=== PATIENT | female | born 1970 | race African-American/Black ===

== ENCOUNTER 2016-04-01 11:59 | Outpatient (CLI) | payer MEDICARE, OTHER | END 2016-04-01 12:00 | disposition home or self-care (01) | DX: M32.10 Systemic lupus erythematosus, organ or system involvement unspecified (principal) ==

== ENCOUNTER 2016-04-25 08:25 | Outpatient (CLI) | payer MEDICARE, OTHER | END 2016-04-25 08:26 | disposition home or self-care (01) | DX: N18.1 Chronic kidney disease, stage 1 (principal) ==

== ENCOUNTER 2016-12-02 12:32 | Outpatient (CLI) | payer MEDICARE, OTHER ==
--- NOTE | 2016-12-02 13:16 | XRAY Report ---
TWO-VIEW CHEST: 12/02/2016 CLINICAL INDICATION: Port removal, unable to remove catheter. FINDINGS: Frontal and lateral views of the chest demonstrate a normal cardiac silhouette. The lungs are clear. Port-A-Cath catheter is noted in the left subclavian vein and superior vena cava, in sta ble position from previous film of 04/01/2015. The external portion of the port has been removed. IMPRESSION: STABLE POSITION OF LEFT SUBCLAVIAN PORT CATHETER, TERMINATING IN THE SUPERIOR VENA CAVA. REMOVAL OF THE EXTERNAL PORTION OF THE PORT. CRITICAL RESULT: RESULTS CALLED TO DR. CHAPIN ON 12/02/2016 AT 1:00 P.M. JOB #: [id number] EXT JOB #:[id number]
== END 2016-12-02 12:33 | disposition home or self-care (01) ==
LOC: DI 12:32
PROVIDERS: ATTEND Surgery
DX: T82.898A Other specified complication of vascular prosthetic devices, implants and grafts, initial encounter (principal)
CPT/HCPCS: 71020

== ENCOUNTER 2017-05-28 08:00 | Outpatient (CLI) | payer MEDICARE, OTHER ==
[2017-05-29 13:48] LABS: COLLECTION TIME,URINE 1440 min; TOTAL VOLUME,URINE 1275 mL
[2017-05-29 13:50] LABS: CREATININE,URINE 166.1 mg/dL
== END 2017-05-28 23:59 | disposition home or self-care (01) ==
LOC: LAB.R 08:00
PROVIDERS: ATTEND Internal Medicine Rheumatology
DX: M32.10 Systemic lupus erythematosus, organ or system involvement unspecified (principal)
CPT/HCPCS: 81001; 82575; 84156; 87086

== ENCOUNTER 2017-05-29 08:00 | Outpatient (CLI) | payer MEDICARE, OTHER ==
[2017-05-29 12:38] LABS: BASOPHILS % (AUTO) 0.3 %; EOSINOPHILS % (AUTO) 0.5 %; LYMPHOCYTES # (AUTO) 2.2 10^3/uL (1.5-3.5); LYMPHOCYTES % (AUTO) 25.5 %; MEAN CORPUSCULAR HEMOGLOBIN 28.7 pg (27.0-31.0); MEAN CORPUSCULAR HGB CONC 32.6 g/dL (32.0-36.0); MEAN CORPUSCULAR VOLUME 88.1 fL (81.0-99.0); MONOCYTES # (AUTO) 0.5 10^3/uL (0.0-1.0); MONOCYTES % (AUTO) 5.9 %; NEUTROPHILS # (AUTO) 5.8 10^3/uL (1.5-6.6); NEUTROPHILS % (AUTO) 67.8 %; PLT - PLATELET COUNT 201 10^3/uL (130-450); RED BLOOD COUNT 4.89 10^6/uL (4.20-5.40); WHITE BLOOD COUNT 8.5 x10^3/uL (4.8-10.8)
[2017-05-29 12:55] LABS: RBC MORPHOLOGY (MULTIPLE) 2+ ANISOCYTOSIS (NORMAL)
[2017-05-29 13:11] LABS: ALBUMIN 4.2 g/dL (3.2-5.5); ALBUMIN/GLOBULIN RATIO 1.8 (1.0-2.2); BILIRUBIN,TOTAL 0.5 mg/dL (0.2-1.0); CALCIUM 8.7 mg/dL (8.5-10.3); CREATININE 0.9 mg/dL (0.4-1.0); TOTAL PROTEIN 6.6 g/dL (6.7-8.2)
[2017-05-29 18:51] LABS: BILIRUBIN,URINE NEGATIVE (NEGATIVE); GLUCOSE, URINE (UA) NEGATIVE (NEGATIVE); KETONES,URINE (UA) NEGATIVE (NEGATIVE); LEUKOCYTE ESTERASE, URINE NEGATIVE (NEGATIVE); NITRITE,URINE NEGATIVE (NEGATIVE); OCCULT BLOOD,URINE NEGATIVE (NEGATIVE); PROTEIN,URINE 100 mg/dL (NEGATIVE); UROBILINOGEN,URINE 0.2 (NORMAL) E.U./dL (NORMAL)
[2017-05-29 19:04] LABS: BACTERIA,URINE None Seen /HPF (None Seen); CLARITY,URINE CLEAR (CLEAR); RBC,URINE 0-5 /HPF (0-5); SQUAMOUS EPITHELIAL CELL,UR MANY Squamous (<= Few)
[2017-05-31 11:32] LABS: DNA (DS) ANTIBODY 6 IU/mL
[2017-05-31 16:47] LABS: COMPLEMENT COMPONENT C3C 116 mg/dL (83-193); COMPLEMENT COMPONENT C4C 28 mg/dL (15-57)
== END 2017-05-29 23:59 | disposition home or self-care (01) ==
LOC: LAB.N 08:00
PROVIDERS: ATTEND Internal Medicine Rheumatology
DX: M32.10 Systemic lupus erythematosus, organ or system involvement unspecified (principal)
CPT/HCPCS: 36415; 80053; 81001; 85025; 85651; 86160; 86225; 87086

== ENCOUNTER 2017-10-13 08:09 | Outpatient (CLI) | payer MEDICARE, OTHER ==
--- NOTE | 2017-10-13 16:24 | DEXA Report ---
Procedure Date: 10/13/2017 Accession Number: [id number] / [id number] Procedure: DEX - Dexa Forearm CPT Code: FULL RESULT: EXAM: Dexa Spine and/or Hip, Dexa Forearm DATE: 10/13/2017 8:53 AM CLINICAL HISTORY: OSTEOPOROSIS TECHNIQUE: Dual energy x-ray absorptiometry (DXA) was performed on a [employer] System. Regions measured are the AP Spine, femoral neck, and if needed forearm. COMPARISON: None. In accordance with the International Society for Clinical Densitometry (ISCD) guidelines, data from previous exams may be reanalyzed using current recommendations and techniques. This is done to allow a more accurate basis for comparison with the current study. FINDINGS: The data for the lumbar spine is as follows: BMD (g/cm/cm) T-SCORE Z-SCORE REGION L1 0.972 -1.3 -2.1 L2 1.015 -1.5 -2.4 L3 1.091 -0.9 -1.7 L4 1.066 -1.1 -1.9 TOTAL 1.040 -1.2 -2.0 NOTE: All evaluable vertebrae are used for classification The data for the left forearm is as follows: BMD (g/cm/cm) T-SCORE Z-SCORE REGION 1/3 0.867 -0.1 -0.8 NOTE: The 33% radius of the nondominant forearm is used for classification. IMPRESSION: THE WHO CLASSIFICATION BASED ON THE INTERNATIONAL REFERENCE STANDARD IS OSTEOPENIA. THE FRACTURE RISK IS INCREASED. RECOMMENDATION: Patients with diagnosis of osteoporosis or osteopenia should have regular bone mineral density assessment. For those eligible for Medicare, routine testing is allowed once every 2 years. Testing frequency can be increased for patients who have rapidly progressing disease or for those who are receiving medical therapy to restore bone mass. COMMENT: World Health Organization (WHO) definitions for osteoporosis and osteopenia: NORMAL BMD: T-score at -1.0 or higher, fracture risk is low OSTEOPENIA BMD: T-score between -1.0 and -2.5, fracture risk is increased. OSTEOPOROSIS BMD: T-score at -2.5 or lower, fracture risk is high. National Osteoporosis Foundation recommends: 1. Obtain adequate dietary calcium (at least 1200 mg per day) and vitamin D (400-800 international units per day). 2. Participate, as appropriate, in regular weightbearing and muscle-strengthening exercise. 3. Avoid tobacco use and reduce alcohol and caffeine intake. 4. For more detailed information see the website at [email or web address].org.
--- NOTE | 2017-10-13 16:24 | DEXA Report ---
Procedure Date: 10/13/2017 Accession Number: [id number] / [id number] Procedure: DEX - Dexa Spine and/or Hip CPT Code: FULL RESULT: EXAM: Dexa Spine and/or Hip, Dexa Forearm DATE: 10/13/2017 8:53 AM CLINICAL HISTORY: OSTEOPOROSIS TECHNIQUE: Dual energy x-ray absorptiometry (DXA) was performed on a [employer] System. Regions measured are the AP Spine, femoral neck, and if needed forearm. COMPARISON: None. In accordance with the International Society for Clinical Densitometry (ISCD) guidelines, data from previous exams may be reanalyzed using current recommendations and techniques. This is done to allow a more accurate basis for comparison with the current study. FINDINGS: The data for the lumbar spine is as follows: BMD (g/cm/cm) T-SCORE Z-SCORE REGION L1 0.972 -1.3 -2.1 L2 1.015 -1.5 -2.4 L3 1.091 -0.9 -1.7 L4 1.066 -1.1 -1.9 TOTAL 1.040 -1.2 -2.0 NOTE: All evaluable vertebrae are used for classification The data for the left forearm is as follows: BMD (g/cm/cm) T-SCORE Z-SCORE REGION 1/3 0.867 -0.1 -0.8 NOTE: The 33% radius of the nondominant forearm is used for classification. IMPRESSION: THE WHO CLASSIFICATION BASED ON THE INTERNATIONAL REFERENCE STANDARD IS OSTEOPENIA. THE FRACTURE RISK IS INCREASED. RECOMMENDATION: Patients with diagnosis of osteoporosis or osteopenia should have regular bone mineral density assessment. For those eligible for Medicare, routine testing is allowed once every 2 years. Testing frequency can be increased for patients who have rapidly progressing disease or for those who are receiving medical therapy to restore bone mass. COMMENT: World Health Organization (WHO) definitions for osteoporosis and osteopenia: NORMAL BMD: T-score at -1.0 or higher, fracture risk is low OSTEOPENIA BMD: T-score between -1.0 and -2.5, fracture risk is increased. OSTEOPOROSIS BMD: T-score at -2.5 or lower, fracture risk is high. National Osteoporosis Foundation recommends: 1. Obtain adequate dietary calcium (at least 1200 mg per day) and vitamin D (400-800 international units per day). 2. Participate, as appropriate, in regular weightbearing and muscle-strengthening exercise. 3. Avoid tobacco use and reduce alcohol and caffeine intake. 4. For more detailed information see the website at www.[email or web address].
== END 2017-10-13 08:10 | disposition home or self-care (01) ==
LOC: DI 08:09
PROVIDERS: ATTEND Internal Medicine Rheumatology
DX: M85.89 Other specified disorders of bone density and structure, multiple sites (principal)
CPT/HCPCS: 77080; 77081

== ENCOUNTER 2018-08-31 13:31 | Outpatient (CLI) | payer MEDICARE, OTHER ==
[~2018-08-31 13:31] MED LIST: ALBUTEROL NEB 2.5 MG/3 ML INH ONE
== END 2018-08-31 13:32 | disposition home or self-care (01) ==
LOC: RT 13:31
PROVIDERS: ATTEND Internal Medicine
DX: R05 Cough (principal)
CPT/HCPCS: 94010